=== PATIENT | male | born 1975 | race Caucasian/White ===

== ENCOUNTER 2018-08-03 12:34 | Emergency (ER) | payer MEDICAID ==
[~2018-08-03] VITALS: Ht 188 cm; Wt 71.8 kg
[2018-08-03 13:04] VITALS: BP 126/71; Ht 188 cm; Wt 71.8 kg
[2018-08-03] MEDS ORDERED: ZOLOFT25 MG (13:05)
[2018-08-03] MEDS ORDERED: TRAZODONE HCL150 MG (13:06)
== END 2018-08-03 16:00 | disposition left against medical advice (07) ==
LOC: D.ER 12:34
DX: M79.604 Pain in right leg (principal)

== ENCOUNTER 2018-08-16 06:56 | Emergency (ER) | payer MEDICAID ==
[~2018-08-16] VITALS: Ht 188 cm; Wt 72.7 kg
[~2018-08-16 06:56] MED LIST: TRAZODONE HCL150 MG; ZOLOFT25 MG
[2018-08-16 07:05] VITALS: BP 123/72; Ht 188 cm; Wt 72.7 kg
[2018-08-16] MEDS ORDERED: TOFRANIL50 MG PO (07:13)
[2018-08-16 07:57] LABS: BASOPHILS 0.5 % (0-2); EOSINOPHILS 6.3 % (0-7); HEMATOCRIT 36.2 % (42.0-54.0); HEMOGLOBIN 12.6 g/dL (13.5-17.5); IMMATURE GRANULOCYTES 0.2 % (0-5); LYMPHOCYTES 17.8 % (15-50); MCH 31.7 pg (26.0-34.0); MCHC 34.8 g/dL (31.0-37.0); MEAN PLATELET VOLUME 9.2 fL (7.4-10.4); MONOCYTES 6.7 % (2-11); NEUTROPHILS 68.5 % (40-80); PLATELET COUNT 255 10x3/uL (130-400); RBC 3.98 10x6/uL (4.20-6.10); RDW 12.7 % (11.5-14.5); WBC 10.9 10x3/uL (4.8-10.8)
[2018-08-16 08:20] LABS: CALC OSMOLALITY 289 mosm/kg (275-300); CARBON DIOXIDE 28.5 mmol/L (21.0-32.0); CHLORIDE - SERUM 106 mmol/L (98-107); GLUCOSE 104 mg/dL (74-106); POTASSIUM - SERUM 3.8 mmol/L (3.5-5.1); SODIUM 144 mmol/L (136-145); UREA NITROGEN 20 mg/dL (7-18); eGFR NON AFRICAN AMERICAN 87 mL/min (90-120)
[2018-08-16 09:57] LABS: UDS - AMPHET POSITIVE QUAL (NEGATIVE); UDS - BARB NEGATIVE QUAL (NEGATIVE); UDS - BENZO NEGATIVE QUAL (NEGATIVE); UDS - COCAINE NEGATIVE QUAL (NEGATIVE); UDS - OPIATE NEGATIVE QUAL (NEGATIVE); UDS - PCP NEGATIVE QUAL (NEGATIVE); UDS - THC POSITIVE QUAL (NEGATIVE)
== END 2018-08-16 15:00 ==
LOC: D.ER 06:56
PROVIDERS: Emergency Medicine
DX: R45.851 Suicidal ideations (principal); R44.0 Auditory hallucinations; F32.9 Major depressive disorder, single episode, unspecified; Z59.0 Homelessness

== ENCOUNTER 2018-08-20 18:40 | Emergency (ER) | payer MEDICAID ==
[~2018-08-20] VITALS: Ht 188 cm; Wt 75.0 kg
[~2018-08-20 18:40] MED LIST changes: +TOFRANIL50 MG PO
[2018-08-20 19:00] VITALS: Ht 188 cm; Wt 75.0 kg
[2018-08-20] MEDS ORDERED: LITHIUM CARBON300 MG (19:00)
[2018-08-20] MEDS ORDERED: ZOLOFT50 MG (19:01)
[2018-08-20 22:15] VITALS: BP 113/56
== END 2018-08-20 22:15 | disposition home or self-care (01) ==
LOC: D.ER 18:40
DX: S86.911A Strain of unspecified muscle(s) and tendon(s) at lower leg level, right leg, initial encounter (principal); X58.XXXA Exposure to other specified factors, initial encounter; Y93.89 Activity, other specified; Y92.89 Other specified places as the place of occurrence of the external cause

== ENCOUNTER 2019-01-18 20:50 | Emergency (ER) | payer MEDICAID ==
[~2019-01-18 20:50] MED LIST changes: +LITHIUM CARBON300 MG; +ZOLOFT50 MG
[2019-01-18 20:57] VITALS: Ht 188 cm
--- NOTE | 2019-01-18 21:52 | NUR ---
DR GRUBER NOTIFIED AND SITTER ORDERED. SITTER AT BEDSIDE, NOTIFIED CHARGE NURSE AND ATTENDING IN REGARDS TO ASSESSMENT FINDINGS, RESOURCES GIVEN TO PT AND SAFETY PLAN INITIATED.
[2019-01-18 22:11] LABS: BASOPHILS 0.5 % (0-2); EOSINOPHILS 7.3 % (0-7); HEMATOCRIT 35.4 % (42.0-54.0); HEMOGLOBIN 12.3 g/dL (13.5-17.5); IMMATURE GRANULOCYTES 0.3 % (0-5); LYMPHOCYTES 31.7 % (15-50); MCH 31.6 pg (26.0-34.0); MCHC 34.7 g/dL (31.0-37.0); MEAN PLATELET VOLUME 9.8 fL (7.4-10.4); NEUTROPHILS 53.2 % (40-80); PLATELET COUNT 216 10x3/uL (130-400); RBC 3.89 10x6/uL (4.20-6.10); RDW 12.8 % (11.5-14.5); WBC 7.8 10x3/uL (4.8-10.8)
[2019-01-18 22:29] LABS: UDS - AMPHET POSITIVE QUAL (NEGATIVE); UDS - BARB NEGATIVE QUAL (NEGATIVE); UDS - BENZO NEGATIVE QUAL (NEGATIVE); UDS - COCAINE NEGATIVE QUAL (NEGATIVE); UDS - OPIATE NEGATIVE QUAL (NEGATIVE); UDS - PCP NEGATIVE QUAL (NEGATIVE); UDS - THC POSITIVE QUAL (NEGATIVE)
[2019-01-18 22:32] LABS: APPEARANCE CLEAR (CLEAR); BILIRUBIN NEGATIVE (NEGATIVE); COLOR YELLOW (YELLOW); GLUCOSE NEGATIVE (NEGATIVE); KETONE NEGATIVE (NEGATIVE); NITRITE NEGATIVE (NEGATIVE); PROTEIN NEGATIVE (NEGATIVE); UROBILINOGEN NORMAL (NORMAL)
[2019-01-18 22:35] LABS: ALBUMIN 3.2 g/dL (3.4-5.0); ALKALINE PHOSPHATASE 114 U/L (46-116); ALT (SGPT) 25 U/L (10-68); CALC OSMOLALITY 282 mosm/kg (275-300); CALCIUM 8.4 mg/dL (8.5-10.1); CARBON DIOXIDE 28.6 mmol/L (21.0-32.0); CHLORIDE - SERUM 105 mmol/L (98-107); CREATININE - SERUM 1.1 mg/dL (0.6-1.3); GLUCOSE 94 mg/dL (74-106); POTASSIUM - SERUM 3.5 mmol/L (3.5-5.1); PROTEIN - SERUM 6.4 g/dL (6.4-8.2); SODIUM 141 mmol/L (136-145); UREA NITROGEN 17 mg/dL (7-18); eGFR NON AFRICAN AMERICAN 78 mL/min (90-120)
[2019-01-18 22:36] LABS: MAGNESIUM - SERUM 1.9 mg/dL (1.8-2.4)
[2019-01-19 01:38] VITALS: BP 117/75
== END 2019-01-19 01:38 ==
LOC: D.ER 20:50
PROVIDERS: Family Medicine
DX: R45.851 Suicidal ideations (principal); R44.0 Auditory hallucinations; F19.10 Other psychoactive substance abuse, uncomplicated